=== PATIENT | female | born 1940 | race Two or more races ===

== ENCOUNTER 2023-11-07 14:24 | Inpatient (IN) | payer MEDICARE, BC ==
[~2023-11-07] VITALS: Ht 152.4 cm; Wt 63.0 kg
[2023-11-07] MEDS ORDERED: acetaminophen 325mg tablet PO ONE ×2 (14:50→20:45)
[2023-11-07 19:27] LABS: BASOPHILS % (AUTO) 0.6 % (0-1); EOSINOPHILS % (AUTO) 0.4 % (0-6); HEMATOCRIT 43.1 % (35.0-45.0); HEMOGLOBIN 14.4 g/dl (12.0-16.0); LYMPHOCYTES # (AUTO) 0.9 X10'3 (1.1-4.8); LYMPHOCYTES % (AUTO) 15.3 % (21-51); MEAN CORPUSCULAR HEMOGLOBIN 28.9 PG (27.0-31.0); MEAN CORPUSCULAR HGB CONC 33.5 g/dL (33.0-36.5); MEAN CORPUSCULAR VOLUME 86.1 FL (78-98); MEAN PLATELET VOLUME 7.3 FL (7.4-10.4); MONOCYTES # (AUTO) 0.3 X10'3 (0-0.9); MONOCYTES % (AUTO) 5.9 % (2-12); NEUTROPHILS # (AUTO) 4.4 X10'3 (1.8-7.7); NEUTROPHILS % (AUTO) 77.8 % (42-75); PLATELET COUNT 286 X10'3 (140-440); RED CELL DISTRIBUTION WIDTH 14.4 % (11.5-14.5); WHITE BLOOD COUNT 5.7 X10'3 (4.5-11.0)
[2023-11-07 19:32] LABS: ALANINE AMINOTRANSFERASE 22 U/L (12-78); ALBUMIN 3.9 G/DL (3.4-5.0); ALKALINE PHOSPHATASE 97 IU/L (46-116); ANION GAP 7 (8-16); ASPARTATE AMINO TRANSFERASE 19 U/L (10-37); BILIRUBIN,TOTAL 0.5 MG/DL (0.1-1.0); BLOOD UREA NITROGEN 19 MG/DL (7-18); BUN/CREATININE RATIO 24.7 (10.0-20.0); CALCIUM 8.9 MG/DL (8.5-10.1); CHLORIDE 98 MMOL/L (99-107); CREATININE 0.77 MG/DL (0.40-0.90); GLUCOSE 110 MG/DL (70-104); POTASSIUM 3.8 MMOL/L (3.5-5.1); SODIUM 134 MMOL/L (135-145); TOTAL CARBON DIOXIDE 28.8 MMOL/L (24-32); TOTAL PROTEIN 7.9 G/DL (6.4-8.2); eCRCL 40 ML/MIN; eGFR 72 ML/MIN
[2023-11-07 19:39] LABS: PRO BRAIN NATRIURETIC PEPTIDE 115 PG/ML (0-450)
[2023-11-08] VITALS (13 sets, daily range): BP systolic 140; BP diastolic 75; PULSE 81–105; RESP 16–28; TEMP 98.3; O2SAT 94–97
[2023-11-08] MEDS ORDERED: CefTRIAXone/D5W-Rocephin 1gm 50 ML IV ONE (00:30)
[2023-11-08] MEDS ORDERED: azithromycin/NS 500mg/250ml 250 ML IV ONE (00:30)
[2023-11-08] MEDS ORDERED: methylPREDNISolone sod succ 125mg/2ml vial IV ONE (00:30)
[2023-11-08] MEDS ORDERED: ondansetron/PF 4mg/2ml inj IV PRN (00:40)
[2023-11-08] MEDS ORDERED: magnesium 4gm in 100ml NS 100 ML IV PRN (00:40)
[2023-11-08] MEDS ORDERED: potassium Cl 40MEQ/1/2NS 520ml 520 ML IV PRN (00:40)
[2023-11-08] MEDS ORDERED: HYDROcodone/acetaminophen 5mg/325mg tablet PO PRN (00:40)
[2023-11-08] MEDS ORDERED: magnesium Cl slow-release 64mg tablet PO PRN (00:40)
[2023-11-08] MEDS ORDERED: magnesium 2GM in 50ml NS 50 ML IV PRN (00:40)
[2023-11-08] MEDS ORDERED: acetaminophen 325mg tablet PO PRN ×2 (00:40)
[2023-11-08] MEDS ORDERED: morphine 2 MG/ML inj. syringe IV PRN (00:40)
[2023-11-08] MEDS ORDERED: potassium Cl 20 mEq SR tablet PO PRN ×2 (00:40)
[2023-11-08 02:07] LABS: BILIRUBIN,URINE NEGATIVE (Neg); CLARITY,URINE SLIGHTLY CLOUDY (Clear); COLOR,URINE YELLOW (Yellow); GLUCOSE, URINE NEGATIVE (Neg); KETONES,URINE NEGATIVE (Neg); LEUKOCYTE ESTERASE ,URINE SMALL (Neg); NITRITES, URINE NEGATIVE (Neg); OCCULT BLOOD,URINE MODERATE (Neg); PH,URINE 5.5 (4.8-8.0); PROTEIN,URINE TRACE mg/dl (Neg); UROBILINOGEN,URINE 0.2 E.U/dL (0.2-1.0)
[2023-11-08 02:12] LABS: UA COLLECTION TYPE CLN CATCH MIDSTREAM
[2023-11-08 02:14] LABS: BACTERIA,URINE 3+ /HPF (Neg); MUCUS STRANDS MANY /LPF (Neg); RENAL CELLS, URINE MODERATE /HPF; SQUAMOUS EPITHELIAL CELL,UR MANY /LPF (FEW)
[2023-11-08 02:15] LABS: TRANSITIONAL EPI CELLS,URINE FEW /HPF
[2023-11-08] MEDS: albuterol 2.5 MG/3 ML nebule NEB SCH ×6 (03:26→23:53)
[2023-11-08] MEDS: methylPREDNISolone sod succ 125mg/2ml vial IV SCH ×2 (07:15→23:29)
[2023-11-08] MEDS ORDERED: THY15T PO (07:23)
[2023-11-08] MEDS ORDERED: ESCI5TAB PO (07:23)
[2023-11-08] MEDS ORDERED: magnesium hydroxide 30ml (MOM) UD suspension PO STA (08:19)
[2023-11-08] MEDS ORDERED: levoFLOXACIN-Levaquin 500mg/D5 100 ML IV SCH (14:00)
[2023-11-08] MEDS ORDERED: temazepam 15mg capsule PO PRN (21:00)
[2023-11-08] MEDS: enoxaparin 40mg/0.4ml syringe SQ SCH (23:30)
[2023-11-09] VITALS (16 sets, daily range): BP systolic 124–156; BP diastolic 62–81; PULSE 71–110; RESP 12–20; TEMP 97.8–98.3; O2SAT 90–97
[2023-11-09] MEDS: albuterol 2.5 MG/3 ML nebule NEB SCH ×6 (03:00→23:00)
[2023-11-09 07:15] LABS: BASOPHILS % (AUTO) 0.2 % (0-1); EOSINOPHILS % (AUTO) 0 % (0-6); HEMATOCRIT 40.7 % (35.0-45.0); HEMOGLOBIN 13.6 g/dl (12.0-16.0); LYMPHOCYTES # (AUTO) 0.8 X10'3 (1.1-4.8); LYMPHOCYTES % (AUTO) 7.8 % (21-51); MEAN CORPUSCULAR HEMOGLOBIN 28.9 PG (27.0-31.0); MEAN CORPUSCULAR HGB CONC 33.5 g/dL (33.0-36.5); MEAN CORPUSCULAR VOLUME 86.5 FL (78-98); MEAN PLATELET VOLUME 7.9 FL (7.4-10.4); MONOCYTES # (AUTO) 0.2 X10'3 (0-0.9); MONOCYTES % (AUTO) 2.3 % (2-12); NEUTROPHILS # (AUTO) 8.7 X10'3 (1.8-7.7); NEUTROPHILS % (AUTO) 89.7 % (42-75); PLATELET COUNT 274 X10'3 (140-440); RED CELL DISTRIBUTION WIDTH 14.6 % (11.5-14.5); WHITE BLOOD COUNT 9.7 X10'3 (4.5-11.0)
[2023-11-09 07:35] LABS: ALANINE AMINOTRANSFERASE 23 U/L (12-78); ALBUMIN 3.6 G/DL (3.4-5.0); ALBUMIN/GLOBULIN RATIO 0.9 (1.1-1.5); ALKALINE PHOSPHATASE 82 IU/L (46-116); ANION GAP 10 (8-16); ASPARTATE AMINO TRANSFERASE 21 U/L (10-37); BILIRUBIN,TOTAL 0.3 MG/DL (0.1-1.0); BLOOD UREA NITROGEN 27 MG/DL (7-18); BUN/CREATININE RATIO 32.1 (10.0-20.0); CHLORIDE 101 MMOL/L (99-107); CREATININE 0.84 MG/DL (0.40-0.90); GLUCOSE 176 MG/DL (70-104); POTASSIUM 4.6 MMOL/L (3.5-5.1); SODIUM 138 MMOL/L (135-145); TOTAL CARBON DIOXIDE 27.1 MMOL/L (24-32); TOTAL PROTEIN 7.6 G/DL (6.4-8.2); eCRCL 36 ML/MIN; eGFR 65 ML/MIN
[2023-11-09] MEDS: sulfamethoxazole/trimethoprim DS (800/160mg) tablet PO SCH ×2 (10:02→20:24)
[2023-11-09] MEDS: guaiFENesin ER 600mg tablet PO SCH ×2 (10:02→20:24)
[2023-11-09] MEDS: methylPREDNISolone sod succ 125mg/2ml vial IV SCH (10:02)
[2023-11-09] MEDS: thyroid, pork 30mg tablet PO SCH (10:03)
[2023-11-09] MEDS: predniSONE 20 mg tablet PO SCH (20:24)
[2023-11-09] MEDS: enoxaparin 40mg/0.4ml syringe SQ SCH (20:25)
[2023-11-09] MEDS ORDERED: ESCITALOPRAM 10 mg tablet 10 MG TABLET PO SCH (21:00)
[2023-11-10] VITALS (8 sets, daily range): BP systolic 144–157; BP diastolic 61–79; PULSE 69–125; RESP 16–22; TEMP 97.1–98.3; O2SAT 93–94
[2023-11-10 06:04] LABS: ALANINE AMINOTRANSFERASE 17 U/L (12-78); ALBUMIN 3.3 G/DL (3.4-5.0); ALBUMIN/GLOBULIN RATIO 0.9 (1.1-1.5); ALKALINE PHOSPHATASE 70 IU/L (46-116); ANION GAP 12 (8-16); ASPARTATE AMINO TRANSFERASE 19 U/L (10-37); BILIRUBIN,TOTAL 0.4 MG/DL (0.1-1.0); BLOOD UREA NITROGEN 25 MG/DL (7-18); BUN/CREATININE RATIO 33.8 (10.0-20.0); CALCIUM 8.8 MG/DL (8.5-10.1); CHLORIDE 100 MMOL/L (99-107); CREATININE 0.74 MG/DL (0.40-0.90); GLUCOSE 143 MG/DL (70-104); POTASSIUM 5.2 MMOL/L (3.5-5.1); SODIUM 133 MMOL/L (135-145); TOTAL CARBON DIOXIDE 21.5 MMOL/L (24-32); TOTAL PROTEIN 6.9 G/DL (6.4-8.2); eCRCL 41 ML/MIN; eGFR 75 ML/MIN
[2023-11-10] MEDS: albuterol 2.5 MG/3 ML nebule NEB SCH ×3 (07:21→16:31)
[2023-11-10 07:23] LABS: BASOPHILS % (AUTO) 0.3 % (0-1); EOSINOPHILS % (AUTO) 0 % (0-6); HEMATOCRIT 40.1 % (35.0-45.0); HEMOGLOBIN 13.2 g/dl (12.0-16.0); LYMPHOCYTES # (AUTO) 1.3 X10'3 (1.1-4.8); LYMPHOCYTES % (AUTO) 11.7 % (21-51); MEAN CORPUSCULAR HEMOGLOBIN 28.4 PG (27.0-31.0); MEAN CORPUSCULAR HGB CONC 32.8 g/dL (33.0-36.5); MEAN CORPUSCULAR VOLUME 86.6 FL (78-98); MEAN PLATELET VOLUME 7.9 FL (7.4-10.4); MONOCYTES # (AUTO) 0.6 X10'3 (0-0.9); NEUTROPHILS # (AUTO) 9.2 X10'3 (1.8-7.7); PLATELET COUNT 293 X10'3 (140-440); RED BLOOD COUNT 4.63 X10'6 (4.20-5.60); RED CELL DISTRIBUTION WIDTH 14.9 % (11.5-14.5); WHITE BLOOD COUNT 11.1 X10'3 (4.5-11.0)
[2023-11-10] MEDS: sulfamethoxazole/trimethoprim DS (800/160mg) tablet PO SCH (07:53)
[2023-11-10] MEDS: predniSONE 20 mg tablet PO SCH (07:53)
[2023-11-10] MEDS: guaiFENesin ER 600mg tablet PO SCH (07:53)
[2023-11-10] MEDS: thyroid, pork 30mg tablet PO SCH (07:53)
[2023-11-10] MEDS ORDERED: AZIT500T2 PO (10:59)
[2023-11-10] MEDS ORDERED: ALBU90AE INH (10:59)
[2023-11-10] MEDS ORDERED: THY15T PO (10:59)
[2023-11-10] MEDS ORDERED: PRED20TA PO (10:59)
[2023-11-10] MEDS ORDERED: ESCI-8 PO (11:05)
[2023-11-12 09:24] LABS: HBSAG SCREEN Negative (Negative); HEP B CORE AB, IGM Negative (Negative); HEP B CORE AB, TOT Negative (Negative)
== END 2023-11-10 16:50 | disposition home or self-care (01) | DRG 193 ==
LOC: ER 14:25 → ED HOLD 11-08 00:42 → PCU 3S 11-08 21:47
PROVIDERS: ADMIT Internal Medicine; ATTEND Family Medicine
DX: J12.1 Respiratory syncytial virus pneumonia (principal); J96.01 Acute respiratory failure with hypoxia; E87.1 Hypo-osmolality and hyponatremia; J44.1 Chronic obstructive pulmonary disease with (acute) exacerbation; J44.0 Chronic obstructive pulmonary disease with (acute) lower respiratory infection; J45.901 Unspecified asthma with (acute) exacerbation; R82.81 Pyuria; Z20.822 Contact with and (suspected) exposure to COVID-19; E87.6 Hypokalemia; E03.9 Hypothyroidism, unspecified; F32.A Depression, unspecified; Z87.891 Personal history of nicotine dependence; Z88.0 Allergy status to penicillin
CPT/HCPCS: 36415; 71046; 80053; 81001; 83605; 83880; 84145; 85025; 85651; 86704; 86705; 87040; 87081; 87340; 87502; 87503; 87634; 87811; 93306; 94640; 94760; 99285; A4615; C2617; G0378; J0456; J0696; J1650; J1956; J2930; J7030; J7512